=== PATIENT | male | born 1955 | race African-American/Black ===

== ENCOUNTER 2019-03-22 20:16 | Inpatient (IN) | payer OTHER ==
[2019-03-22 20:56] VITALS: BMI 28.2
--- NOTE | 2019-03-22 22:10 | HP ---
COWS - Scale Resting Pulse: 0= [place] 80 or Below Sweatin=Flushed/Facial Moisture Restless Observation: 1= Difficult to Sit Still Pupil Size: 0= Normal to Room Light Bone or Joint Aches: 4=Acute Joint/Muscle Pain Runny Nose/ Eye Tearin= None GI Upset > 30mins: 0= None Tremor Observation: 0= None Yawning Observation: 0= None Anxiety or Irritability: 2=Irritable/Anxious Goose Flesh Skin: 0=Smooth Skin COWS Score: 9 CIWA Score Nausea/Vomitin-No Nausea/No Vomiting Muscle Tremors: None Anxiety: 3 Agitation: 4-Moderately Restless Paroxysmal Sweats: 4-Forehead w/Sweat Beads Orientation: 0-Oriented Tacttile Disturbances: 0-None Auditory Disturbances: 0-None Visual Disturbances: 3-Moderate Sensitivity Headache: 0-None Present CIWA-Ar Total Score: 14 - Admission Criteria [facility] Guidelines: Admission for Medically Managed Detox: Requires at least one of the followin. CIWA greater than 12 2. Seizures within the past 24 hours 3. Delirium tremens within the past 24 hours 4. Hallucinations within the past 24 hours 5. Acute intervention needed for co occurring medical disorder 6. Acute intervention needed for co occurring psychiatric disorder 7. Severe withdrawal that cannot be handled at a lower level of care (continued vomiting, continued diarrhea, abnormal vital signs) requiring intravenous medication and/or fluids 8. Patient presents the following: CIWA greater than 12 Admission Criteria Met: Admission criteria met Admission ROS [facility] Chief Complaint: c/o withdrawal sx's Allergies/Adverse Reactions: Allergies Allergy/AdvReac Type Severity Reaction Status Date / Time No Known Allergies Allergy Verified 03/22/19 20:39 History of Present Illness: 64 Y.O. MALE WITH ALCOHOLISM, CRACK, COCAINE, HEROIN DEPENDENCE HERE FOR DETOX. PRESENTS WITH C/O WITHDRAWAL SX'S. UTOX + OPI, ZACARIAS, THC. COWS-9/ CIWA 14. DENIES ANY RECENT DETOX. REPORTS LONGEST CLEAN TIME 1 YEAR. DENIES ANY THIS PAST 1 YEAR. REPORTS LAST USE 2 DAYS AGO HE WAS ARRESTED AND DETAINED X 2 DAYS. HE DRINKS DAILY BUT USES HEROIN 2 TO 3 X A WEEK. DENIES HX/O SEIZURES, BLACK OUTS, DT'S. 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, DENIES LEGALS Exam Limitations: No Limitations - Ebola screening Have you traveled outside of the country in the last 21 days: No (N) Have you had contact with anyone from an Ebola affected area: No Do you have a fever: No - Review of Systems Constitutional: Chills, Night Sweats, Changes in sleep EENT: reports: Dental Problems (MISSING TEETH) Respiratory: reports: No Symptoms reported Cardiac: reports: No Symptoms Reported GI: reports: Poor Fluid Intake : reports: No Symptoms Reported Musculoskeletal: reports: No Symptoms Reported Integumentary: reports: Sweating Neuro: reports: No Symptoms reported Endocrine: reports: No Symptoms Reported Hematology: reports: No Symptoms Reported Psychiatric: reports: Orientated x3, Agitated, Anxious, Depressed (DENIES SI) Other Systems: Reviewed and Negative Patient History - Patient Medical History Hx Anemia: No Hx Asthma: No Hx Chronic Obstructive Pulmonary Disease (COPD): No Hx Cancer: No Hx Cardiac Disorders: No Hx Congestive Heart Failure: No Hx Hypertension: No Hx Hypercholesterolemia: No Hx Pacemaker: No HX Cerebrovascular Accident: No Hx Seizures: No Hx Dementia: No Hx Diabetes: No Hx Gastrointestinal Disorders: No Hx Liver Disease: No Hx Genitourinary Disorders: No Hx Sexually Transmitted Disorders: No Hx Renal Disease (ESRD): No Hx Thyroid Disease: No Hx Human Immunodeficiency Virus (HIV): Yes (HETERO SEXUAL 1990) Hx Hepatitis C: No Hx Depression: No Hx Suicide Attempt: No Hx Bipolar Disorder: No Hx Schizophrenia: No Other Medical History: DENIES - Patient Surgical History Past Surgical History: No - PPD History Previous Implant?: Yes Documented Results: Negative w/o proof Implanted On Prior [facility] Admission?: No PPD to be Administered?: Yes - Smoking Cessation Smoking history: Current every day smoker Have you smoked in the past 12 months: Yes Aproximately how many cigarettes per day: 3 Cigars Per Day: 0 Hx Chewing Tobacco Use: No Initiated information on smoking cessation: Yes 'Breaking Loose' booklet given: 03/22/19 - Substance & Tx. History Hx Alcohol Use: Yes Hx Substance Use: Yes Substance Use Type: Alcohol, Cocaine, Heroin, Marijuana Hx Substance Use Treatment: Yes (DOES NOT RECALL) - Substances abused Alcohol Substance route: Oral Frequency: Daily Amount used: 3 CANS OF BEER, 1 PINT OF LIQUOR Age of first use: 20 Date of last use: 07/01/19 Heroin Substance route: Inhalation Frequency: 3-6 times per week Amount used: 2 BAGS Age of first use: 32 Date of last use: 03/19/19 Crack Substance route: Smoking Frequency: Daily Amount used: $60-$70 Age of first use: 39 Date of last use: 03/19/19 Family Disease History - Family Disease History Family History: Denies Admission Physical Exam BHS - Vital Signs Vital Signs: Vital Signs - 24 hr 03/22/19 03/22/19 20:52 21:16 Temperature 97.1 F L 97.1 F L Pulse Rate 71 71 Respiratory 20 20 Rate Blood Pressure 127/83 127/83 - Physical General Appearance: Yes: Tremorous (FELT), Irritable, Sweating, Anxious HEENTM: Yes: EOMI, Normocephalic, Normal Voice, KAREN, Pharynx Normal (DRY MUCUS MEMBRANES), Other (POOR DENTITION MISSING TEETH) Respiratory: Yes: Chest Non-Tender, Lungs Clear, Normal Breath Sounds, No Respiratory Distress, No Accessory Muscle Use Neck: Yes: No masses,lesions,Nodules, Supple, Trachea in good position Breast: Yes: Breast Exam Deferred Cardiology: Yes: Regular Rhythm, Regular Rate, S1, S2, Murmur Abdominal: Yes: Non Tender, Soft, Increased Bowel Sounds Genitourinary: Yes: Within Normal Limits Back: Yes: Normal Inspection Musculoskeletal: Yes: full range of Motion, Gait Steady Extremities: Yes: Normal Range of Motion, Non-Tender, Tremors (FELT) Neurological: Yes: Fully Oriented, Alert, Motor Strength 5/5, Depressed Affect Integumentary: Yes: Moist Lymphatic: Yes: Within Normal Limits - Diagnostic (1) Alcohol dependence with uncomplicated withdrawal Current Visit: Yes Status: Acute (2) Opioid dependence with withdrawal Current Visit: Yes Status: Acute (3) Cannabis dependence, uncomplicated Current Visit: Yes Status: Acute (4) Cocaine dependence, uncomplicated Current Visit: Yes Status: Acute (5) Nicotine dependence Current Visit: Yes Status: Chronic Qualifiers: Nicotine product type: cigarettes Substance use status: uncomplicated Qualified Code(s): F17.210 - Nicotine dependence, cigarettes, uncomplicated (6) Depressed affect Current Visit: Yes Status: Acute (7) Murmur, cardiac Current Visit: Yes Status: Chronic (8) At risk for dehydration due to poor fluid intake Current Visit: Yes Status: Acute (9) Dry mucous membranes Current Visit: Yes Status: Acute Cleared for Admission [facility] - Detox or Rehab [facility] Level of Care: Medically Managed Detox Regimen/Protocol: Librium, Methadone Claeared for Rehab Admission: No Breathalyzer - Breathalyzer Breathalyzer: 0 Urine Drug Screen - Test Device Lot number: [id number] Expiration date: 11/17/20 - Control Is test valid?: Yes - Results Drug screen NEGATIVE: No Urine drug screen results: THC-Marijuana, ZACARIAS-Cocaine, MOP-Opiates Inpatient Rehab Admission - Rehab Decision to Admit Inpatient rehab admission?: No
[2019-03-22] MEDS ORDERED: ONDANSETRON *ODT* 4 MG TABLET SL PRN (22:17)
[2019-03-22] MEDS ORDERED: BISMUTH SUBSALICYLATE 524 MG/30 ML UD PO PRN (22:17)
[2019-03-22] MEDS ORDERED: NICOTINE POLACRILEX 2 MG GUM BUC PRN (22:17)
[2019-03-22] MEDS ORDERED: MAGNESIUM HYDROX 2400MG/30ML ORAL SUSPENSION 30 ML CUP PO PRN (22:17)
[2019-03-22] MEDS ORDERED: METHOCARBAMOL 500 MG TABLET PO PRN (22:17)
[2019-03-22] MEDS ORDERED: MENTHOL/PHENOL 1 EACH UD MM PRN (22:17)
[2019-03-22] MEDS ORDERED: cloNIDine HCL 0.1 MG TABLET PO PRN (22:17)
[2019-03-22] MEDS ORDERED: DICYCLOMINE HCL 10 MG CAPSULE PO PRN (22:17)
[2019-03-22] MEDS ORDERED: MELATONIN 5 MG TABLETS PO PRN (22:17)
[2019-03-22] MEDS ORDERED: IBUPROFEN 400 MG TABLET (FP) PO PRN (22:17)
[2019-03-22] MEDS ORDERED: MAG HYDROX/AL HYDROX/SIMETH 30 ML UNIT-DOSE CUP PO PRN (22:17)
[2019-03-22] MEDS ORDERED: chlordiazePOXIDE HCL 10 MG CAPSULE PO PRN (22:17)
[2019-03-22] MEDS ORDERED: METHADONE HCL 10 MG TABLET (FOR DETOX USE ONLY) PO ONE (22:17)
[2019-03-22] MEDS ORDERED: NALOXONE HCL 0.4 MG/ML VIAL IVPUSH PRN (22:17)
[2019-03-22] MEDS ORDERED: P-EPHED 60MG/TRIPROLIDI 2.5MG TABLET PO PRN (22:17)
[2019-03-22] MEDS ORDERED: ACETAMINOPHEN 325 MG TABLET (FP) PO PRN ×2 (22:17)
[2019-03-22] MEDS ORDERED: hydrOXYzine PAMOATE 25 MG CAPSULE (FP) PO PRN (22:17)
[2019-03-22] MEDS ORDERED: MAGNESIUM CITRATE 300 ML BOTTLE PO PRN (22:17)
[2019-03-22] MEDS: chlordiazePOXIDE HCL 25 MG CAPSULE PO SCH (23:22)
[2019-03-23] MEDS: chlordiazePOXIDE HCL 25 MG CAPSULE PO SCH ×3 (06:16→22:05)
--- NOTE | 2019-03-23 09:56 | CONSULT ---
[facility] Psychiatric Consult - Data Date of interview: 03/23/19 Admission source: [facility] Identifying data: Patient is a 64 year old single male, father of seven, unemployed, domiciled, and is supported by [employer]. This is patient's first admission to detox at [facility]. Patient admitted to for alcohol, cocaine, and opioid dependence. Substance Abuse History: Smoking Cessation. Smoking history: Current every day smoker. Have you smoked in the past 12 months: Yes. Aproximately how many cigarettes per day: 3. Cigars Per Day: 0. Hx Chewing Tobacco Use: No. Initiated information on smoking cessation: Yes. 'Breaking Loose' booklet given : 03/22/19. - Substance & Tx. History. Hx Alcohol Use: Yes. Hx Substance Use : Yes. Substance Use Type: Alcohol, Cocaine, Heroin, Marijuana. Hx Substance Use Treatment: Yes (DOES NOT RECALL). - Substances abused. Alcohol. Substance route: Oral. Frequency: Daily. Amount used: 3 CANS OF BEER, 1 PINT OF LIQUOR. Age of first use: 20. Date of last use: 03/20/19. Heroin. Substance route: Inhalation. Frequency: 3-6 times per week. Amount used: 2 BAGS. Age of first use: 32. Date of last use: 03/19/19. Crack. Substance route: Smoking. Frequency: Daily. Amount used: $60-$70. Age of first use: 39. Date of last use: 03/19/19 Medical History: Significant for HIV Psychiatric History: Patient denies h/o psychiatric hospitalization, outpatient care, and suicide attempt. At present patient reports difficulty sleeping and is concerned about his history of HIV since 1989. Mr. Childs is currently on antiretroviral therapy. Patient given positive reassurance. Patient motivated to complete detox and be admitted to rehab as his main goal is to stop using illict substances. Physical/Sexual Abuse/Trauma History: Refuses to elaborate. Mental Status Exam - Mental Status Exam Alert and Oriented to: Time, Place, Person Cognitive Function: Good Patient Appearance: Well Groomed Mood: Euthymic Affect: Appropriate Patient Behavior: Cooperative Speech Pattern: Appropriate Voice Loudness: Normal Thought Process: Goal Oriented Thought Disorder: Not Present Hallucinations: Denies Suicidal Ideation: Denies Homicidal Ideation: Denies Insight/Judgement: Poor Sleep: Poorly Appetite: Fair Muscle strength/Tone: Normal Gait/Station: Normal Psychiatric Findings - Problem List (Bud 1, 2,3) (1) Substance-induced sleep disorder Current Visit: Yes Status: Acute (2) Alcohol dependence with uncomplicated withdrawal Current Visit: Yes Status: Acute (3) Cannabis dependence, uncomplicated Current Visit: Yes Status: Acute (4) Cocaine dependence, uncomplicated Current Visit: Yes Status: Acute (5) Opioid dependence with withdrawal Current Visit: Yes Status: Acute - Initial Treatment Plan Initial Treatment Plan: Psychoeducation provided. Detoxification in progress. Patient encouraged to accept Melatonin 5mg for insomnia.
[2019-03-23] MEDS ORDERED: METHADONE HCL 5 MG TABLET (FOR DETOX USE ONLY) PO ONE (10:00)
[2019-03-23] MEDS ORDERED: ERGOCALCIFEROL (VIT D2) 50,000 UNIT (1.25 MG) CAPSULE PO SCH (10:00)
[2019-03-23] MEDS: PATIENT'S OWN MEDICATION (NON-FORMULARY) (Abacavir Sulfate/Lamivudine [Abacavir-Lamivudine PO SCH (10:22)
[2019-03-23] MEDS: PATIENT'S OWN MEDICATION (NON-FORMULARY) (Darunavir/Cobicistat [Prezcobix 800 Mg-150 Mg Ta PO SCH (10:22)
[2019-03-23] MEDS: PRENATAL VITAMINS W/ FOLIC ACID TABLET (FP) PO SCH (10:22)
[2019-03-23] MEDS: NICOTINE 14 MG/24 HOURS TOPICAL PATCH TD SCH (10:22)
--- NOTE | 2019-03-23 10:23 | EKG ---
Test Reason : Blood Pressure : / mmHG Vent. Rate : 056 BPM Atrial Rate : 056 BPM P-R Int : 144 ms QRS Dur : 116 ms QT Int : 478 ms P-R-T Axes : -05 052 -03 degrees QTc Int : 461 ms SINUS BRADYCARDIA INCOMPLETE RIGHT BUNDLE BRANCH BLOCK NONSPECIFIC T WAVE ABNORMALITY PROLONGED QT ABNORMAL ECG WHEN COMPARED WITH ECG OF 22-MAR-2019 22:42, T WAVE INVERSION NO LONGER EVIDENT IN ANTEROLATERAL LEADS Confirmed by CECILIA WONG MD ([id number]) on 03/23/2019 10:22:35 AM Referred By: DAVE Confirmed By:CECILIA WONG MD
--- NOTE | 2019-03-23 10:24 | EKG ---
Test Reason : Blood Pressure : / mmHG Vent. Rate : 069 BPM Atrial Rate : 069 BPM P-R Int : 152 ms QRS Dur : 118 ms QT Int : 434 ms P-R-T Axes : 050 077 036 degrees QTc Int : 465 ms NORMAL SINUS RHYTHM INCOMPLETE RIGHT BUNDLE BRANCH BLOCK NONSPECIFIC T WAVE ABNORMALITY PROLONGED QT ABNORMAL ECG NO PREVIOUS ECGS AVAILABLE Confirmed by CECILIA WONG MD ([id number]) on 03/23/2019 10:24:21 AM Referred By: Confirmed By:CECILIA WONG MD
--- NOTE | 2019-03-23 11:13 | PN ---
[facility] CIWA - CIWA Score Nausea/Vomitin-Mild Nausea/No Vomiting Muscle Tremors: 3 Anxiety: 3 Agitation: 2 Paroxysmal Sweats: 1-Minimal Palms Moist Orientation: 0-Oriented Tacttile Disturbances: 0-None Auditory Disturbances: 0-None Visual Disturbances: 0-None Headache: 0-None Present CIWA-Ar Total Score: 10 BHS COWS - Scale Resting Pulse: 0= [place] 80 or Below Sweatin= Chills/Flushing Restless Observation: 0= Sits Still Pupil Size: 0= Normal to Room Light Bone or Joint Aches: 1= Mild Discomfort Runny Nose/ Eye Tearin= Nasal Congestion GI Upset > 30mins: 2= Nausea/Diarrhea Tremor Observation of Outstretched Hands: 1= Tremor [place], Not Seen Yawning Observation: 1= 1-2x During Session Anxiety or Irritability: 1=Feels Anxious/Irritable Goose Flesh Skin: 0=Smooth Skin COWS Score: 8 S Progress Note (SOAP) Subjective: discussed about negative cnsequences of alcohol and opiate misuse related to cardiac problems patient ambulating on hallway tolerate food and fluid well social with peers Objective: 03/23/19 11:12 Vital Signs Temperature 96.8 F L 03/23/19 09:46 Pulse Rate 68 03/23/19 09:46 Respiratory Rate 18 03/23/19 09:46 Blood Pressure 128/87 03/23/19 09:46 O2 Sat by Pulse Oximetry (%) 03/23/19 11:13 lab pending Assessment: 03/23/19 11:15 alcohol and opiate withdrawal sx Plan: continue alcohol and opiate withdrawal sx
[2019-03-23 13:05] LABS: HEMATOCRIT 39.3 % (35.4-49); HEMOGLOBIN 12.6 GM/dL (11.7-16.9); MCH 27.7 pg (25.7-33.7); MCHC 32.2 g/dl (32.0-35.9); MEAN PLT VOLUME 9.1 fl (7.5-11.1); PLATELET COUNT 200 K/MM3 (134-434); RBC 4.57 M/mm3 (4.00-5.60); RDW 15.2 % (11.9-15.9); WHITE BLOOD COUNT 3.9 K/mm3 (4.0-10.0)
[2019-03-23 13:21] LABS: ALBUMIN 3.4 g/dl (3.4-5.0); BILIRUBIN,TOTAL 0.3 mg/dL (0.2-1); BLOOD UREA NITROGEN 20.2 mg/dL (7-18); CALCIUM 8.9 mg/dL (8.5-10.1); CREATININE 1.3 mg/dL (0.55-1.3); TOT PROT 7.4 g/dl (6.4-8.2)
[2019-03-23] MEDS: THIAMINE HCL 100 MG TABLET (FP) PO SCH (22:05)
[2019-03-24] MEDS: chlordiazePOXIDE 5 MG CAPSULE PO SCH ×3 (05:20→22:26)
[2019-03-24] MEDS ORDERED: METHADONE HCL 10 MG TABLET (FOR DETOX USE ONLY) PO ONE (10:00)
[2019-03-24] MEDS: PATIENT'S OWN MEDICATION (NON-FORMULARY) (Abacavir Sulfate/Lamivudine [Abacavir-Lamivudine PO SCH (10:44)
[2019-03-24] MEDS: PATIENT'S OWN MEDICATION (NON-FORMULARY) (Darunavir/Cobicistat [Prezcobix 800 Mg-150 Mg Ta PO SCH (10:44)
[2019-03-24] MEDS: PRENATAL VITAMINS W/ FOLIC ACID TABLET (FP) PO SCH (10:45)
[2019-03-24] MEDS: MINERAL OIL/PETROLAT/WATER TOPICAL CREAM 113 GM JAR TP SCH ×2 (10:45→22:28)
[2019-03-24] MEDS: NICOTINE 14 MG/24 HOURS TOPICAL PATCH TD SCH (10:51)
[2019-03-24] MEDS: TOLNAFTATE 1% CREAM 15 GM TUBE TP SCH ×2 (11:37→23:33)
[2019-03-24] MEDS ORDERED: ERGOCALCIFEROL (VIT D2) 50,000 UNIT (1.25 MG) CAPSULE PO ONE (13:45)
--- NOTE | 2019-03-24 16:27 | PN ---
[facility] CIWA - CIWA Score Nausea/Vomitin-No Nausea/No Vomiting Muscle Tremors: None Anxiety: 3 Agitation: 2 Paroxysmal Sweats: 2 Orientation: 0-Oriented Tacttile Disturbances: 2-Mild Itch/Numbness/Burn Auditory Disturbances: 2-Mild Harshness/Frighten Visual Disturbances: 0-None Headache: 0-None Present CIWA-Ar Total Score: 11 S COWS - Scale Resting Pulse: 0= [place] 80 or Below Sweatin=Flushed/Facial Moisture Restless Observation: 1= Difficult to Sit Still Pupil Size: 0= Normal to Room Light Bone or Joint Aches: 0= None Runny Nose/ Eye Tearin= None GI Upset > 30mins: 0= None Tremor Observation of Outstretched Hands: 0= None Yawning Observation: 1= 1-2x During Session Anxiety or Irritability: 2=Irritable/Anxious Goose Flesh Skin: 0=Smooth Skin COWS Score: 6 S Progress Note (SOAP) Subjective: Interrupted Sleep, Fatigue, Anxious, Sweating. Objective: PATIENT A & O X 3, OBSERVED AMBULATING ON UNIT UNASSISTED. IN NO ACUTE DISTRESS. 03/24/19 16:25 Vital Signs Temperature 97.6 F 03/24/19 13:46 Pulse Rate 67 03/24/19 13:46 Respiratory Rate 20 03/24/19 13:46 Blood Pressure 127/79 03/24/19 13:46 O2 Sat by Pulse Oximetry (%) Laboratory Tests 03/23/19 03/23/19 03/23/19 08:00 08:00 08:00 WBC 3.9 L RBC 4.57 Hgb 12.6 Hct 39.3 MCV 86.0 MCH 27.7 MCHC 32.2 RDW 15.2 Plt Count 200 MPV 9.1 Sodium 142 Potassium 4.0 Chloride 108 H Carbon Dioxide 28 Anion Gap 6 L BUN 20.2 H Creatinine 1.3 Est GFR (CKD-EPI)AfAm 67.78 Est GFR (CKD-EPI)NonAf 58.48 Random Glucose 89 Calcium 8.9 Total Bilirubin 0.3 AST 26 ALT 44 Alkaline Phosphatase 66 Total Protein 7.4 Albumin 3.4 RPR Titer Nonreactive LABS NOTED. TB / QFT TEST RESULTS PENDING. 03/24/19 16:26 Assessment: 03/24/19 16:26 WITHDRAWAL SYMPTOMS. Plan: CONTINUE DETOX. INCREASE DAILY PO WATER INTAKE.
[2019-03-24] MEDS: THIAMINE HCL 100 MG TABLET (FP) PO SCH (22:26)
[2019-03-25] MEDS ORDERED: chlordiazePOXIDE HCL 10 MG CAPSULE PO PRN
[2019-03-25] MEDS: chlordiazePOXIDE HCL 10 MG CAPSULE PO SCH ×3 (05:31→22:23)
[2019-03-25] MEDS ORDERED: METHADONE HCL 5 MG TABLET (FOR DETOX USE ONLY) PO ONE (06:00)
[2019-03-25] MEDS: NICOTINE 14 MG/24 HOURS TOPICAL PATCH TD SCH (10:11)
[2019-03-25] MEDS: PATIENT'S OWN MEDICATION (NON-FORMULARY) (Darunavir/Cobicistat [Prezcobix 800 Mg-150 Mg Ta PO SCH (10:12)
[2019-03-25] MEDS: PRENATAL VITAMINS W/ FOLIC ACID TABLET (FP) PO SCH (10:13)
[2019-03-25] MEDS: PATIENT'S OWN MEDICATION (NON-FORMULARY) (Abacavir Sulfate/Lamivudine [Abacavir-Lamivudine PO SCH (10:13)
[2019-03-25] MEDS: MINERAL OIL/PETROLAT/WATER TOPICAL CREAM 113 GM JAR TP SCH ×2 (10:14→22:23)
[2019-03-25] MEDS: TOLNAFTATE 1% CREAM 15 GM TUBE TP SCH ×2 (10:16→22:24)
--- NOTE | 2019-03-25 13:42 | PN ---
[facility] CIWA - CIWA Score Nausea/Vomitin-No Nausea/No Vomiting Muscle Tremors: None Anxiety: 3 Agitation: 2 Paroxysmal Sweats: 2 Orientation: 0-Oriented Tacttile Disturbances: 1-Very Mild Itch/Numbness Auditory Disturbances: 0-None Visual Disturbances: 1-Very Mild Sensitivity Headache: 0-None Present CIWA-Ar Total Score: 9 S COWS - Scale Resting Pulse: 0= [place] 80 or Below Sweatin= Chills/Flushing Restless Observation: 1= Difficult to Sit Still Pupil Size: 0= Normal to Room Light Bone or Joint Aches: 0= None Runny Nose/ Eye Tearin= None GI Upset > 30mins: 0= None Tremor Observation of Outstretched Hands: 0= None Yawning Observation: 1= 1-2x During Session Anxiety or Irritability: 2=Irritable/Anxious Goose Flesh Skin: 0=Smooth Skin COWS Score: 5 S Progress Note (SOAP) Subjective: Fatigue, Anxious, Interrupted Sleep, Sweating. Objective: PATIENT A & O X 3, OBSERVED AMBULATING ON UNIT UNASSISTED. IN NO ACUTE DISTRESS. 03/25/19 13:40 Vital Signs Temperature 97.4 F L 03/25/19 09:39 Pulse Rate 61 03/25/19 09:39 Respiratory Rate 18 03/25/19 09:39 Blood Pressure 137/82 03/25/19 09:39 O2 Sat by Pulse Oximetry (%) Laboratory Tests 03/23/19 03/23/19 03/23/19 08:00 08:00 08:00 WBC 3.9 L RBC 4.57 Hgb 12.6 Hct 39.3 MCV 86.0 MCH 27.7 MCHC 32.2 RDW 15.2 Plt Count 200 MPV 9.1 Sodium 142 Potassium 4.0 Chloride 108 H Carbon Dioxide 28 Anion Gap 6 L BUN 20.2 H Creatinine 1.3 Est GFR (CKD-EPI)AfAm 67.78 Est GFR (CKD-EPI)NonAf 58.48 Random Glucose 89 Calcium 8.9 Total Bilirubin 0.3 AST 26 ALT 44 Alkaline Phosphatase 66 Total Protein 7.4 Albumin 3.4 RPR Titer Nonreactive LABS NOTED. RESULTS OF TB / QFT TESTING PENDING. 03/25/19 13:41 Assessment: 03/25/19 13:41 WITHDRAWAL SYMPTOMS. Plan: CONTINUE DETOX. PATIENT SCHEDULED FOR D/C FROM DETOX UNIT TOMORROW.
[2019-03-25] MEDS: THIAMINE HCL 100 MG TABLET (FP) PO SCH (22:22)
[2019-03-26] MEDS ORDERED: chlordiazePOXIDE HCL 10 MG CAPSULE PO ONE (05:00)
[2019-03-26 06:50] VITALS: TEMP 97
[2019-03-26 09:49] VITALS: BP 155/95; PULSE 61
[2019-03-26] MEDS: PATIENT'S OWN MEDICATION (NON-FORMULARY) (Abacavir Sulfate/Lamivudine [Abacavir-Lamivudine PO SCH (10:15)
[2019-03-26] MEDS: PRENATAL VITAMINS W/ FOLIC ACID TABLET (FP) PO SCH (10:16)
[2019-03-26] MEDS: PATIENT'S OWN MEDICATION (NON-FORMULARY) (Darunavir/Cobicistat [Prezcobix 800 Mg-150 Mg Ta PO SCH (10:16)
[2019-03-26] MEDS: MINERAL OIL/PETROLAT/WATER TOPICAL CREAM 113 GM JAR TP SCH (10:16)
[2019-03-26] MEDS: TOLNAFTATE 1% CREAM 15 GM TUBE TP SCH (10:16)
[2019-03-26] MEDS: NICOTINE 14 MG/24 HOURS TOPICAL PATCH TD SCH (10:16)
--- NOTE | 2019-03-26 15:27 | DS ---
[facility] Detox Discharge Summary Admission Date: 03/22/19 Discharge Date: 03/26/19 - History Present History: Alcohol Dependence, Opioid Dependence Additional Comments: 64 years old male admitted on 03/22/19 for alcohol and opiate withdrawal stabilization completed detox regimen [facility] Pertinent Past History: patient may return to infectious disease provider for medical and mental issues encourage bring in medication list and lab report to follow up health service - Physical Exam Results Vital Signs: Vital Signs Temperature 97 F L 03/26/19 09:48 Pulse Rate 61 03/26/19 09:48 Respiratory Rate 20 03/26/19 09:48 Blood Pressure 155/95 03/26/19 09:48 O2 Sat by Pulse Oximetry (%) Pertinent Admission Physical Exam Findings: Laboratory Last Values WBC 3.9 K/mm3 (4.0-10.0) L 03/23/19 08:00 RBC 4.57 M/mm3 (4.00-5.60) 03/23/19 08:00 Hgb 12.6 GM/dL (11.7-16.9) 03/23/19 08:00 Hct 39.3 % (35.4-49) 03/23/19 08:00 MCV 86.0 fl (80-96) 03/23/19 08:00 MCH 27.7 pg (25.7-33.7) 03/23/19 08:00 MCHC 32.2 g/dl (32.0-35.9) 03/23/19 08:00 RDW 15.2 % (11.9-15.9) 03/23/19 08:00 Plt Count 200 K/MM3 (134-434) 03/23/19 08:00 MPV 9.1 fl (7.5-11.1) 03/23/19 08:00 Sodium 142 mmol/L (136-145) 03/23/19 08:00 Potassium 4.0 mmol/L (3.5-5.1) 03/23/19 08:00 Chloride 108 mmol/L (98-107) H 03/23/19 08:00 Carbon Dioxide 28 mmol/L (21-32) 03/23/19 08:00 Anion Gap 6 MMOL/L (8-16) L 03/23/19 08:00 BUN 20.2 mg/dL (7-18) H 03/23/19 08:00 Creatinine 1.3 mg/dL (0.55-1.3) 03/23/19 08:00 Est GFR (CKD-EPI)AfAm 67.78 03/23/19 08:00 Est GFR (CKD-EPI)NonAf 58.48 03/23/19 08:00 Random Glucose 89 mg/dL (74-106) 03/23/19 08:00 Calcium 8.9 mg/dL (8.5-10.1) 03/23/19 08:00 Total Bilirubin 0.3 mg/dL (0.2-1) 03/23/19 08:00 AST 26 U/L (15-37) 03/23/19 08:00 ALT 44 U/L (13-61) 03/23/19 08:00 Alkaline Phosphatase 66 U/L (45-117) 03/23/19 08:00 Total Protein 7.4 g/dl (6.4-8.2) 03/23/19 08:00 Albumin 3.4 g/dl (3.4-5.0) 03/23/19 08:00 RPR Titer Nonreactive (NONREACTIVE) 03/23/19 08:00 TB (QFT) Incubation (.) 03/23/19 09:00 TB Test (QFT) Nil 0.02 IU/mL (.) 03/23/19 09:00 TB Test (QFT) Mitogen 2.10 IU/mL (.) 03/23/19 09:00 TB Test (QFT) Antigen 0.03 IU/mL (.) 03/23/19 09:00 TB Test (QFT) Negative (Negative) 03/23/19 09:00 TB Positive Criteria (.) 03/23/19 09:00 lab noted - Treatment Hospital Course: Detox Protocol Followed, Detoxed Safely, Responded well, Discharged Condition Good, Rehab Referral Accepted Patient has Accepted a Rehab Referral to: [facility] - Medication Discharge Medications: Ambulatory Orders Abacavir Sulfate/Lamivudine [Abacavir-Lamivudine 600-300 mg] 1 each PO DAILY 12/06 Darunavir/Cobicistat [Prezcobix 800 mg-150 mg Tablet] 1 each PO DAILY 03/22/19 Ergocalciferol [Vitamin D2] 50,000 unit PO WEEKLY 03/22/19 - Diagnosis (1) Alcohol dependence with uncomplicated withdrawal Status: Acute (2) Opioid dependence with withdrawal Status: Acute (3) Nicotine dependence Status: Acute Qualifiers: Nicotine product type: cigarettes Substance use status: in withdrawal Qualified Code(s): F17.213 - Nicotine dependence, cigarettes, with withdrawal (4) HIV (human immunodeficiency virus infection) Status: Chronic Qualifiers: HIV symptom status: asymptomatic Qualified Code(s): Z21 - Asymptomatic human immunodeficiency virus [HIV] infection status - AMA Did Patient Leave Against Medical Advice: No
== END 2019-03-26 14:00 | disposition home or self-care (01) | DRG 773 ==
LOC: YASAS 20:16 → Y3N 22:34
PROVIDERS: ADMIT Surgery; ATTEND Surgery
PROC: HZ2ZZZZ Detoxification Services for Substance Abuse Treatment (ICD-10-PCS; principal; 2019-03-22)
DX: F10.230 Alcohol dependence with withdrawal, uncomplicated (principal); F11.23 Opioid dependence with withdrawal; F14.20 Cocaine dependence, uncomplicated; F12.20 Cannabis dependence, uncomplicated; F17.213 Nicotine dependence, cigarettes, with withdrawal; Z21 Asymptomatic human immunodeficiency virus [HIV] infection status
CPT/HCPCS: 36415; 80053; 85027; 86480; 86593; 93005; 93010